=== PATIENT | male | born 1965 | race Two or more races ===

== ENCOUNTER 2018-02-20 14:37 | Emergency (ER) | payer SELFPAY ==
[2018-02-20 14:41] VITALS: BP 133/72; PULSE 76; RESP 18; TEMP 98.2; O2SAT 99
--- NOTE | 2018-02-20 14:53 | ED PDOC ---
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 Patient offers no medical or psychiatric complaints, but states he has a disabled daughter so has seen a psych doctors in the past and prescribed anxiety medication as needed, but nothing everyday. However, he notes he has not taken any of the meds in months. Denies suicidal / homicidal ideation. Patient calm and cooperative in the ED at this time. PMD: [place] Past Medical History Reviewed: Historical Data, Nursing Documentation, Vital Signs Vital Signs: Last Vital Signs Temp 98.2 F 02/20/18 14:38 Pulse 76 02/20/18 14:38 Resp 18 02/20/18 14:38 BP 133/72 02/20/18 14:38 Pulse Ox 99 02/20/18 14:38 - Medical History PMH: No Chronic Diseases - Surgical History Surgical History: No Surg Hx - Family History Family History: States: Unknown Family Hx - Social History Current smoker - smoking cessation education provided: No Alcohol: None Drugs: Denies - Allergies Allergies/Adverse Reactions: Allergies Allergy/AdvReac Type Severity Reaction Status Date / Time No Known Allergies Allergy Verified 02/20/18 14:38 Review of Systems ROS Statement: Except As Marked, All Systems Reviewed And Found Negative Psych: Negative for: Suicidal ideation (or homicidal ideation) Physical Exam - Reviewed Nursing Documentation Reviewed: Yes Vital Signs Reviewed: Yes - Physical Exam Appears: Positive for: No Acute Distress Head Exam: Positive for: ATRAUMATIC, NORMOCEPHALIC Skin: Positive for: Normal Color Eye Exam: Positive for: Normal appearance Cardiovascular/Chest: Positive for: Regular Rate, Rhythm Respiratory: Positive for: Normal Breath Sounds. Negative for: Respiratory Distress Gastrointestinal/Abdominal: Positive for: Normal Exam, Soft. Negative for: Tenderness Extremity: Positive for: Normal ROM Neurologic/Psych: Positive for: Alert, Oriented (x3), Mood/Affect (calm, cooperative), Gait (steady, unassisted) - ECG O2 Sat by Pulse Oximetry: 99 (RA) Pulse Ox Interpretation: Normal Medical Decision Making Medical Decision Making: Time: 1452 Initial Impression: medical / psychiatric clearance Initial Plan: --Patient medically and psychiatrically cleared for incarceration. Scribe Attestation: Documented by Sweta Parada, acting as a scribe for Anne Bhandari PA-C Provider Scribe Attestation: All medical record entries made by the Scribe were at my direction and personally dictated by me. I have reviewed the chart and agree that the record accurately reflects my personal performance of the history, physical exam, medical decision making, and the department course for this patient. I have also personally directed, reviewed, and agree with the discharge instructions and disposition. Disposition - Clinical Impression Clinical Impression: Normal exam - Disposition Disposition: Routine/Home Disposition Time: 14:53 Condition: GOOD Additional Instructions: Pt. medically and psychiatrically cleared for incarceration. Instructions: General (DC) Forms: [employer] ([place])
== END 2018-02-20 15:13 ==
LOC: H.ER 14:37